=== PATIENT | female | born 1935 ===

== ENCOUNTER 2018-08-10 13:40 | Outpatient (CLI) | payer OTHER ==
[~2018-08-10] VITALS: Ht 152.4 cm; Wt 77.1 kg
== END 2018-08-10 14:00 | disposition home or self-care (01) ==
LOC: OFIC 805 13:40
DX: H93.13 Tinnitus, bilateral (principal); H69.83 Other specified disorders of Eustachian tube, bilateral; R09.81 Nasal congestion; J30.89 Other allergic rhinitis; J32.8 Other chronic sinusitis

== ENCOUNTER 2018-10-12 11:17 | Outpatient (CLI) | payer OTHER ==
[~2018-10-12] VITALS: Ht 152.4 cm; Wt 77.1 kg
== END 2018-10-12 11:35 | disposition home or self-care (01) ==
LOC: OFIC 805 11:17
DX: H69.83 Other specified disorders of Eustachian tube, bilateral (principal); R68.89 Other general symptoms and signs; K20.8 Other esophagitis; J37.0 Chronic laryngitis

== ENCOUNTER 2018-10-23 07:20 | Emergency (ER) | payer OTHER ==
[~2018-10-23] VITALS: Ht 165.1 cm; Wt 77.1 kg
[2018-10-23] MEDS ORDERED: ZEGERID 40 MG1 EACH (07:58)
[2018-10-23] MEDS ORDERED: METOPROLOL ER-1 EACH (07:58)
[2018-10-23] MEDS ORDERED: SYNTHROID50 MCG (07:58)
[2018-10-23] MEDS ORDERED: TRANXENE T-TAB7.5 MG (08:14)
[2018-10-23] MEDS ORDERED: CEFUROXIME500 MG PO (11:46)
[2018-10-23] MEDS ORDERED: URIN D.S. TABL1 EACH PO (11:46)
[2018-10-23] MEDS ORDERED: INTESTINEX680 M1 PO (11:46)
== END 2018-10-23 12:43 | disposition home or self-care (01) ==
LOC: ER 07:20
DX: N39.0 Urinary tract infection, site not specified (principal); B96.89 Other specified bacterial agents as the cause of diseases classified elsewhere; N30.80 Other cystitis without hematuria

== ENCOUNTER 2018-11-09 10:30 | Outpatient (CLI) | payer OTHER ==
[~2018-11-09] VITALS: Ht 152.4 cm; Wt 77.1 kg
[~2018-11-09 10:30] MED LIST: CEFUROXIME500 MG PO; INTESTINEX680 M1 PO; METOPROLOL ER-1 EACH; SYNTHROID50 MCG; TRANXENE T-TAB7.5 MG; URIN D.S. TABL1 EACH PO; ZEGERID 40 MG1 EACH
== END 2018-11-09 10:45 | disposition home or self-care (01) ==
LOC: OFIC 805 10:30
DX: H93.13 Tinnitus, bilateral (principal); H69.90 Unspecified Eustachian tube disorder, unspecified ear; R09.81 Nasal congestion; J30.89 Other allergic rhinitis; H90.3 Sensorineural hearing loss, bilateral; K21.0 Gastro-esophageal reflux disease with esophagitis

== ENCOUNTER 2018-12-17 11:03 | Outpatient (CLI) | payer OTHER ==
[~2018-12-17] VITALS: Ht 152.4 cm; Wt 77.1 kg
== END 2018-12-17 11:20 | disposition home or self-care (01) ==
LOC: OFIC 805 11:03
DX: H69.90 Unspecified Eustachian tube disorder, unspecified ear (principal); H93.13 Tinnitus, bilateral; J30.89 Other allergic rhinitis; H90.3 Sensorineural hearing loss, bilateral; H61.22 Impacted cerumen, left ear

== ENCOUNTER 2019-03-04 13:51 | Outpatient (CLI) | payer OTHER ==
[~2019-03-04] VITALS: Ht 152.4 cm; Wt 77.1 kg
== END 2019-03-04 14:10 | disposition home or self-care (01) ==
LOC: OFIC 805 13:51
DX: H69.90 Unspecified Eustachian tube disorder, unspecified ear (principal); R09.81 Nasal congestion; J30.89 Other allergic rhinitis; K21.0 Gastro-esophageal reflux disease with esophagitis; R05 Cough

== ENCOUNTER 2019-03-09 11:46 | Outpatient (CLI) | payer OTHER | END 2019-03-09 11:49 | disposition home or self-care (01) | LOC: TOM 11:46 | DX: H70.891 Other mastoiditis and related conditions, right ear (principal) ==

== ENCOUNTER 2019-04-12 11:29 | Outpatient (CLI) | payer OTHER ==
[~2019-04-12] VITALS: Ht 152.4 cm; Wt 77.1 kg
== END 2019-04-12 11:35 | disposition home or self-care (01) ==
LOC: OFIC 805 11:29
DX: H93.13 Tinnitus, bilateral (principal); H69.83 Other specified disorders of Eustachian tube, bilateral; J30.89 Other allergic rhinitis; H90.3 Sensorineural hearing loss, bilateral

== ENCOUNTER 2019-06-17 09:13 | Outpatient (CLI) | payer OTHER | END 2019-06-17 09:15 | disposition home or self-care (01) | LOC: RAD 09:13 | DX: R05 Cough (principal) ==